=== PATIENT | female | born 1980 | race Caucasian/White ===

== ENCOUNTER 2018-10-16 11:10 | Inpatient (IN) ==
[2018-10-16] MEDS ORDERED: Ringers Solution, Lactated 1,000 ML IVC SCH (11:45)
[2018-10-16] MEDS ORDERED: *HR* FentaNYL (PF) 100 MCG/2 ML VIAL ONE ×2 (11:51→15:56)
[2018-10-16] MEDS ORDERED: *HR* Midazolam HCl 2 MG/2 ML VIAL ONE (11:51)
[2018-10-16] MEDS ORDERED: Lidocaine HCL 4 ML Topical Solution (Laryng-O-Jet Kit Sterile Pak) TP ONE (11:51)
[2018-10-16] MEDS ORDERED: *HR* Propofol 200 MG/20 ML VIAL IVP ONE (11:52)
[2018-10-16] MEDS ORDERED: Lidocaine -MPF 2% 2 ML VIAL ONE (11:53)
[2018-10-16] MEDS ORDERED: *HR* Succinylcholine 200 MG/10 ML VIAL IVP ONE (11:53)
[2018-10-16] MEDS ORDERED: Ondansetron 4 MG/2 ML VIAL ONE (11:54)
[2018-10-16] MEDS ORDERED: Dexamethasone 4 MG/ML VIAL ONE (11:54)
--- NOTE | 2018-10-16 12:12 | History & Physical Report ---
Date of Encounter: 10/16/18 Time of Encounter: 12:12 24 Hour HP Update - Instructions Instructions: If the History and Physical is less than 30 days old and was completed prior to A.M. admission and or procedure and has NOT been updated on calendar day of procedure please complete this update prior to performing procedure. - Update Patient reports changes in Medical Condition: No Changes in examination, assessment, or condition: No Changes in Medication: No Preop tests/diagnostics Reviewed: Yes Surgery Remains Indicated: Yes Consent for Planned Operative Procedure(s) Verified: Yes - Pre-Operative Checklist Preoperative Checklist Indicated: No Prophylactic Antibiotic Ordered: Yes Is VTE Prophylaxis Indicated?: Yes
[2018-10-16] MEDS ORDERED: *HR* Methadone 10 MG TABLET PO ONE (12:35)
[2018-10-16] MEDS ORDERED: Gabapentin 300 MG CAPSULE PO ONE (12:35)
[2018-10-16] MEDS ORDERED: Acetaminophen IV 1,000 MG/100 ML INFUS..BTL IVPB ONE (12:35)
--- NOTE | 2018-10-16 12:40 | Anesthesia Evaluation PreOp ---
Date of Encounter: 10/16/18 Time of Encounter: 12:38 - Past History Planned Operation: LEFT YOAN ROBOTIC Cardiac History: Denies any Significant Hx Pulmonary History: Former smoker INSECTICIDE SPRAYER History: Other (ANXIETY) Other Medical History: Denies Any Significant HX Anesthesia History: No Prior Anesthetic Complications, Past Anesthesia Test: Negative (10/09) Alcohol Use: none Drug use: none Medications and Allergies Acetaminophen [Tylenol] 1,000 mg PO QPM PRN 10/16/18 [History] Citalopram Hydrobromide [Citalopram HBr] 40 mg PO QPM 10/16/18 [History] Desog-E.estradiol/E.estradiol [Desogestr-Eth Estrad Eth Estra] 1 tab PO QPM 10/16/18 [History] Meloxicam 7.5 mg PO BID PRN 10/16/18 [History] Allergy/AdvReac Type Severity Reaction Status Date / Time oxycodone [From Percocet] Allergy Nausea Verified 10/16/18 11:47 - Meds/Allergy Pre-op Review Medications Reviewed: Yes Allergies Reviewed: Yes Anesthesia Results - Labs WNL Anesthesia Exam Vital Signs/O2 Sat, Most Current Temp Pulse Resp BP Pulse Ox 97.6 F 71 18 111/74 100 10/16/18 11:46 10/16/18 11:46 10/16/18 11:46 10/16/18 11:46 10/16/18 11:46 Weight: 59 KG - BMI 22 NPO (# of Hours): 8 - HEENT Mallampati: I Teeth: Normal - Cardiac Rhythm: Regular - Pulmonary Breath Sounds: bilateral Clear Anesthesia Assess/Plan ASA Score: 2 Anesthetic Plan: General Reason for No Neuroaxial/Regional Block: Other (HIGHER RISK FOR PDPH WITH AGE, NEEDS ANALGESIC TITRATION POST OP) Monitoring Plan: Standard Monitors Recovery Plan: PACU
[2018-10-16] MEDS ORDERED: *HR* HYDROmorphone 2 MG TABLET PO PRN (12:45)
[2018-10-16] MEDS ORDERED: Albuterol 2.5 MG/3 ML NEBULIZER IH ONE (12:45)
[2018-10-16] MEDS ORDERED: *HR* HYDROmorphone (PF) 1 MG/ML SYRINGE IVP PRN (12:45)
[2018-10-16] MEDS ORDERED: *HR* Midazolam HCl 2 MG/2 ML VIAL IVP PRN (12:45)
[2018-10-16] MEDS ORDERED: Ethanol\\Acetic Acid\\Na Ace\\Ben 1,000 ML IRRIG.SOLN IR ONE (14:37)
[2018-10-16] MEDS ORDERED: Ketorolac 30 MG/ML VIAL ONE (15:00)
[2018-10-16] MEDS ORDERED: ceFAZolin 2,000 MG in Water for inj. (sterile) 20 ML IVP ONE (15:21)
[2018-10-16] MEDS ORDERED: EPHEDrine 50 MG/ML VIAL ONE (15:36)
[2018-10-16] MEDS ORDERED: *HR* Rocuronium Bromide 50 MG/5 ML VIAL ONE (15:47)
[2018-10-16] MEDS ORDERED: Tranexamic Acid 1,000 MG/10 ML VIAL ONE (15:57)
--- NOTE | 2018-10-16 16:08 | Orthopedic Operative Note ---
Date of procedure: 10/16/18 Pre-op diagnosis: Left hip arthritis/left hip dysplasia Post-op diagnosis: same Procedure: Procedure: Left Total Hip Replacment robotic-assisted Estimated blood loss: 300 cc Hardware: Metal and polyethylene replacement. Carlos DM Cup: 54 cup Femoral size 5 anteverted anato stem Head: -4 head with Sondra Procedural Notes: Grade 4 arthritic changes femoral head acetabular socket, procedure performed with robotic assistance. Operative leg 2 mm shorter than nonoperative leg by preoperative CT scan Operative procedure: The patient was brought to the operating room and placed on the operating room table. After anesthesia was administered the patient was placed in the lateral decubitus position with the operative leg up. All pressure points were padded appropriately and the head was stabilized in the neutral position. The operative extremity was prepped and draped in the sterile surgical fashion patient received IV antibiotic prior to skin incision. 3 Steinmann pins were placed in the iliac crest 3 cm proximal to the anterior superior iliac spine this was for the robotic-assisted sensor. This was done through a small 2 cm incision. A standard posterior approach is made to the operative hip, the incision was made through the skin and subcutaneous tissue hemostasis was obtained with Bovie cautery. Using careful sharp dissection the fascia was identified and incised exposing the external rotators. The greater trochanter was marked, and length was measured at this time utilizing robotic assistance. The external rotators were released off the greater trochanter and tagged with #2 FiberWire suture. The capsule was T'd open and the hip was brought into internal rotation. Patient noted to have grade 4 arthritic changes femoral head. The femoral neck cut was made at the appropriate level roughly 17mm proximal to the lesser trochanter aced on preoperative templating. An anterior capsulotomy was performed for the anterior retractor. Soft tissues removed from the acetabulum. Patient noted to have grade 4 arthritic changes acetabulum. The acetabulum reference point was confirmed. The acetabulum was then mapped with robotic assistance. Based on the preoperative plan the acetabulum was reamed in sequential he up to a size 54 reamer. The 54 acetabulum was impacted with robotic assistance and 37 degrees of abduction and 35 degrees of anteversion. The hip was brought back in to internal rotation and prepared with the picker box operator followed by the canal finder followed by the reaming process to a size 12 broaching process in 20 degrees anteversion. It was broached up to the appropriate size 5 Trial reduction revealed leg lengths close to normal. The femoral implant was impacted in place in 20 degrees of anteversion. Trial reduction found the hip to be stable with -4head and Sondra. The trials were removed and the real implants were impacted in place. The hip was reduced, patient had robotic confirmed leg length of 4 mm longer than the contralateral side. The hip had excellent stability with forward flexion to 90 degrees adduction of 30 degrees and internal rotation of 60 degrees. The hip had no shuck. The hip sat with an antibacterial solution. It was irrigated out with 2 L of pulse irrigation. The Steinmann pins were removed. The deep tissue was irrigated and closed deep with #1 PDS suture superficially with 0 PDS suture and skin was closed with Dermabond and zip tie. The patient was placed in a sterile dressing and abduction pillow. The patient was transferred to the recovery room in stable condition. Anesthesia: GETA Surgeon: Nikolay García Was there an assistant store manager operations present: Yes Lining Stuffer: Kapil Real Estimated blood loss (cc): 300 Condition: stable Disposition: PACU
--- NOTE | 2018-10-16 16:50 | Anesthesia Evaluation Post Op ---
Date of Encounter: 10/16/18 Time of Encounter: 16:50 - Discharge PostOp Status: Transfer Patient to floor (Patient's vital signs have been reviewed. Patient is stable postoperatively and has adequately recovered from anesthesia. Patient is determined to have stable airway patency and respiratory function including respiratory rate and oxygen saturation. Patient has a stable heart rate, blood pressure and adequate hydration. Patients mental status is acceptable. Patients temperature is appropriate. Pain and nausea are adequately controlled)
[2018-10-16 17:02] LABS: Hematocrit 30.5 % (35.3-44.9); Hemoglobin 9.7 g/dL (11.5-15.4)
--- NOTE | 2018-10-16 17:17 | Physician Discharge Referral ---
Home Health/Hosp Referral Info Transfer to: Home Health Attending Provider: Dr. Nikolay García - Diagnosis (1) Status post total hip replacement, left Priority: Primary Status: Acute (2) Left hip pain Priority: Primary Status: Chronic (3) Congenital dysplasia of left hip Priority: Primary Status: Chronic - Respiratory Orders Smoking Cessation: Smoking cessation has been advised. For more information, call the [place] Tobacco Quit Line at 1-819-ZVDS-NOW. - Diet/Nutrition Diet/Nutrition Orders: Regular - Activity Activity Orders: Up ad dax, Ambulate, Chair, Walker - Services Needed Following services are medically necessary services: Nursing, Home Health Aide, Physical Therapy, Occupational Therapy, Med Social Work Home Care Orders: Total Hip replacement Precautions Apply cold therapy 3-6x/day for 20 minutes at a time. Encourage ambulation throughout the day and incentive spirometer 10x/hour. Elevate affected extremity as tolerated. Brace: Wear hip abduction pillow when laying/sleeping Opsite placed. Keep dressing intact until first follow up appointment. If greater than 50% saturated, notify office, remove dressing and place appropriate dressing back in place. Leave Zipline intact. Opsite dressing is water resistant, not water-proof. OK to shower, but do not get dressing wet. - Transfer Medications Prescriptions: Docusate [Colace] 100 mg PO BID 5 Days #10 capsule HYDROcodone/Acet 5/325 mg [[place] 5-325 mg] 1 tab PO Q6H PRN 5 Days #20 tab PRN Reason: Severe Pain Acetaminophen [Pain Relief] 500 mg PO Q6H 7 Days #28 tablet Home Medications: Acetaminophen [Pain Relief] 500 mg PO Q6H 7 Days #28 tablet 10/16/18 [Rx] Citalopram Hydrobromide [Citalopram HBr] 40 mg PO QPM 10/16/18 [History] Desog-E.estradiol/E.estradiol [Desogestr-Eth Estrad Eth Estra] 1 tab PO QPM 10/16/18 [History] Docusate [Colace] 100 mg PO BID 5 Days #10 capsule 10/16/18 [Rx] HYDROcodone/Acet 5/325 mg [[place] 5-325 mg] 1 tab PO Q6H PRN 5 Days #20 tab 10/16/18 [Rx] Meloxicam 7.5 mg PO BID PRN 10/16/18 [History] Allergies/Adverse Reactions: Allergy/AdvReac Type Severity Reaction Status Date / Time oxycodone [From Percocet] Allergy Nausea Verified 10/16/18 11:47 Certification: Further, I certify that my clinical findings support that this patient is homebound (i.e. absences from home require considerable and taxing effort and are for medical reasons or confucianism services or infrequently or short duration when for other reasons) because: Homebound Reason: Post-surgery restriction and or conditions limit ability to leave home Attestation: My signature below is to certify that this patient is under my care and that I, or nurse practitioner, or a physician drug safety assistant working with me, has a [id number] encounter with this patient.
--- NOTE | 2018-10-16 17:17 | Physician Discharge Referral ---
ExtendedCare Referral Info Transfer To: CANCEL DOCUMENT - Transfer Medications Prescriptions: Docusate [Colace] 100 mg PO BID 5 Days #10 capsule Ibuprofen [Motrin] 600 mg PO Q6HR PRN 7 Days #28 tab PRN Reason: Pain HYDROcodone/Acet 5/325 mg [[place] 5-325 mg] 1 tab PO Q6H PRN 5 Days #20 tab PRN Reason: Severe Pain Acetaminophen [Pain Relief] 500 mg PO Q6H 7 Days #28 tablet Home Medications: Acetaminophen [Pain Relief] 500 mg PO Q6H 7 Days #28 tablet 10/16/18 [Rx] Acetaminophen [Tylenol] 1,000 mg PO QPM PRN 10/16/18 [History] Citalopram Hydrobromide [Citalopram HBr] 40 mg PO QPM 10/16/18 [History] Desog-E.estradiol/E.estradiol [Desogestr-Eth Estrad Eth Estra] 1 tab PO QPM 10/16/18 [History] Docusate [Colace] 100 mg PO BID 5 Days #10 capsule 10/16/18 [Rx] HYDROcodone/Acet 5/325 mg [[place] 5-325 mg] 1 tab PO Q6H PRN 5 Days #20 tab 10/16/18 [Rx] Ibuprofen [Motrin] 600 mg PO Q6HR PRN 7 Days #28 tab 10/16/18 [Rx] Meloxicam 7.5 mg PO BID PRN 10/16/18 [History] Allergies/Adverse Reactions: Allergy/AdvReac Type Severity Reaction Status Date / Time oxycodone [From Percocet] Allergy Nausea Verified 10/16/18 11:47 - Respiratory Orders Smoking Cessation: Smoking cessation has been advised. For more information, call the [place] Tobacco Quit Line at 4-726-WGGQ-NOW. CERTIFICATION: I certify that the transfer of the above named patient to an Extended Care Facility is necessary for the continuing treatment of the diagnosis listed. The above information is true and accurate reflection of patient's current condition. Confidential - Redisclosure prohibited without a patient's written consent.
[2018-10-16] MEDS ORDERED: Sennosides 8.6 MG TABLET PO PRN (17:33)
[2018-10-16] MEDS ORDERED: *HR* Promethazine 25 MG/ML VIAL IVP PRN (17:33)
[2018-10-16] MEDS ORDERED: Naloxone 0.4 MG/ML INJ IVP PRN (17:33)
[2018-10-16] MEDS ORDERED: Ondansetron 4 MG/2 ML VIAL IVP PRN (17:33)
[2018-10-16] MEDS ORDERED: MOM Conc 10 ML UD.LIQ PO PRN (17:33)
[2018-10-16] MEDS ORDERED: Temazepam 15 MG CAPSULE PO PRN (17:33)
[2018-10-16] MEDS ORDERED: traMADol 50 MG TABLET PO PRN (17:33)
[2018-10-16] MEDS ORDERED: *HR* Enoxaparin 30 MG/0.3 ML SYRINGE SQ SCH (18:00)
--- NOTE | 2018-10-16 18:38 | Discharge Summary ---
<Kapil Real - Last Filed: 10/16/18 18:36> Orders not resulted at time of discharge: Pending orders 10/16/18 15:50 Surgical Pathology [PTH] Routine Date of Encounter: 10/16/18 - Discharge Diagnosis (1) Right hip pain Priority: Primary Status: Acute - Hospital Course Hospital course: Ms. Coffey is a 38 year old female - Time Spent with Patient Total time spent providing and/or coordinating discharge services: - Discharge Medications Prescriptions: New Docusate [Colace] 100 mg PO BID 5 Days #10 capsule HYDROcodone/Acet 5/325 mg [[place] 5-325 mg] 1 tab PO Q6H PRN 5 Days #20 tab PRN Reason: Severe Pain Acetaminophen [Pain Relief] 500 mg PO Q6H 7 Days #28 tablet Continued Citalopram Hydrobromide [Citalopram HBr] 40 mg PO QPM Desog-E.estradiol/E.estradiol [Desogestr-Eth Estrad Eth Estra] 1 tab PO QPM Meloxicam 7.5 mg PO BID PRN PRN Reason: Pain Discontinued Acetaminophen [Tylenol] 1,000 mg PO QPM PRN PRN Reason: Pain Home Medications: Acetaminophen [Pain Relief] 500 mg PO Q6H 7 Days #28 tablet 10/16/18 [Rx] Citalopram Hydrobromide [Citalopram HBr] 40 mg PO QPM 10/16/18 [History] Desog-E.estradiol/E.estradiol [Desogestr-Eth Estrad Eth Estra] 1 tab PO QPM 10/16/18 [History] Docusate [Colace] 100 mg PO BID 5 Days #10 capsule 10/16/18 [Rx] HYDROcodone/Acet 5/325 mg [[place] 5-325 mg] 1 tab PO Q6H PRN 5 Days #20 tab 10/16/18 [Rx] Meloxicam 7.5 mg PO BID PRN 10/16/18 [History] Allergies/Adverse Reactions: Allergy/AdvReac Type Severity Reaction Status Date / Time oxycodone [From Percocet] Allergy Nausea Verified 10/16/18 11:47 Date of admission: 10/16/18 18:28 Primary care physician: Marie White MD Consults: 10/16/18 17:33 Consult to Nurse Navigator [CONS] Routine Comment: ortho navigator Consult to Nutrition [CONS] Routine Comment: Consulting Provider: NUTRITION Reason for Dietary Consult: Other Other:: Proper nutrition to facilitate wound healing Consult to Occupational Therapy [CONS] Routine Comment: Evaluate, develop and implement POC Reason for Consult: total hip replacement Does patient have active BEDREST order?: No Is patient medically & hemodynamically stable?: Yes Consult to Physical Therapy [CONS] Routine Comment: Evaluate, develop and implement POC Reason for Consult: total hip replacement Does patient have active BEDREST order?: No Is patient medically & hemodynamically stable?: Yes Consult to Ruffler [CONS] Routine Reason for SW Consult: post op joint replacement RT Post Op Consult [CONS] Routine Labs on day of discharge: Labs from last 24 hours 10/16/18 16:35 Hgb 9.7 L Hct 30.5 L - Impressions ITS Impressions Hip X-Ray 10/16/18 01:00 IMPRESSION: No acute complication status post left hip arthroplasty. D/ / 10/16/2018 16:49:21 Paresh Tay MD / bcarter Interpreting Provider: Paresh Tay MD - Patient Status Disposition: Home Health Service Condition: Fair - Discharge Instructions Follow Up With: Marie White MD [Primary Care Provider] - Additional Instructions: Discharge Instructions: Total Hip Replacement Please call [facility] ([phone]), your Primary Care Physician, or report to the Emergency Room if you have any of the following symptoms: Nausea, vomiting, fever greater that 101.5, swelling, chest pain, shortness of breath, increased pain/redness/drainage/odor for your incision site, numbness/tingling, or any other concerning symptoms. ACTIVITY:Weight-bearing as tolerated for 8 weeks with hip dislocation precautions that physical therapy taught you. You may progress as tolerated under the guidance of your physical therapist. You do not need to sleep with a pillow between your legs. You can also seep on the operative side or on your stomach. Incentive Spirometer 10 times an hour. MEDICATIONS: Upon discharge resume your home medications. Take all the medications as prescribed. Take a stool softener if taking narcotic pain medications. Stool softeners are only effective if you drink enough fluids. Drink 6-8 glass of water or fluids a day, unless this is not allowed for another health problem. Despite using stool softeners, if you haven't had a bowel movement in 3 days, please switch to a gentle laxative. Gentle laxatives are sold over the counter. You should have a bowel movement within 24 hours, if not call the office. You will be discharged from the hospital with a prescription for pain medication. You are encouraged to decrease the use of narcotic pain medication as tolerated. Should you require a refill, please call the office. [facility] prescribes narcotic pain medication for only 4-6 weeks after surgery. If you require pain medication beyond this time period, you may be referred to your Primary Care Physician or to the Pain Clinic for further evaluation. Plan ahead for refills on pain medication as many narcotics either need to be picked up at the office or mailed. It is best to call 48-72 hours in advance of needing a prescription refill so you don't run out of medication. To help control the post-operative pain, you may take NSAIDs (Aleve,Advil, Motrin, ibuprofen, naprosyn) or Tylenol as prescribed on the bottle in addition to the pain medication. ANTICOAGULATION (blood thinners): Continue your Aspirin, Lovenox or Coumadin as prescribed to help prevent a blood clot in the leg or in the lungs. As long as your incision remains dry and you tolerate the NSAIDs (Aleve, Advil, Motrin, Ibuprofen, Naprosyn), it is OK to use the NSAIDS while you are taking your anticoagulation medication. Should your incision start to drain, stop the NSAID and contact our office. Common symptoms of blood clot in the legs include: localized pain, swelling, calf tenderness, redness or discoloration of the skin. Blood clot in the lung symptoms include: shortness of breath, rapid pulse, sweating, and chest pain that worsens with deep breathing, coughing up blood, lightheadedness, feelings of anxiety. If you experience any of these symptoms notify your physician immediately, go to the emergency room, or if having trouble breathing, call 911. WOUND CARE: Leave the dressing on for 7 to 10days. You may change the dressing if it is saturated greater than 50%. Do not get the dressing wet at anytime. Wash your hands with antibacterial soap, rinse and dry prior to any wound care. If you have javier the visiting nurse or rehab facility can remove the stapes 10-14 days after surgery and place steri-strips across the wound. Leave the steri-strips in place until they fall off on their own. You may let water from the shower run on top of the steri-strips. If you do not have a visiting nurse or rehab facility, you will need to return to the office at 10-14 days for the javier to be removed. If you have itching or redness around the dressing call the office. FOLLOW-UP: Please follow up with your surgeon in the orthopedic clinic in 6 weeks from the day of surgery. If you have javier that need to be removed, you will need to come back to the office in 10-14 days from the day of surgery. <Dunia Fernandez E - Last Filed: 10/24/18 07:45> Date of Encounter: 10/16/18 Time of Encounter: 12:30 - Discharge Diagnosis (1) Status post total hip replacement, left Priority: Primary Status: Acute (2) Left hip pain Priority: Primary Status: Chronic (3) Congenital dysplasia of left hip Priority: Primary Status: Chronic - Hospital Course Hospital course: Ms. Coffey is a 38 year old female The patient's postoperative course was uneventful. Progressed from intravenous analgesic needs to oral analgesic needs only. Remained neurovascularly intact and mobilized satisfactorily. All radiographic studies were satisfactory. Patient course and disposition was followed by Dr. García. Patient seen by Dr. García as discharging physician on this day. Patient is discharged with plan for rehabilitation and outpatient orthopedic follow up has been arranged. - Time Spent with Patient Total time spent providing and/or coordinating discharge services: Date of admission: 10/16/18 18:28 Primary care physician: Marie White MD Consults: 10/16/18 17:33 Consult to Nurse Navigator [CONS] Routine Comment: ortho navigator Consult to Nutrition [CONS] Routine Comment: Consulting Provider: NUTRITION Reason for Dietary Consult: Other Other:: Proper nutrition to facilitate wound healing Consult to Occupational Therapy [CONS] Routine Comment: Evaluate, develop and implement POC Reason for Consult: total hip replacement Does patient have active BEDREST order?: No Is patient medically & hemodynamically stable?: Yes Consult to Physical Therapy [CONS] Routine Comment: Evaluate, develop and implement POC Reason for Consult: total hip replacement Does patient have active BEDREST order?: No Is patient medically & hemodynamically stable?: Yes Consult to Ruffler [CONS] Routine Reason for SW Consult: post op joint replacement RT Post Op Consult [CONS] Routine Discharging clinician: Nikolay García Anticipated date of discharge: 10/17/18 - VTE Documentation of Mechanical Device: Venous foot pump, device - Impressions ITS Impressions Hip X-Ray 10/16/18 01:00 IMPRESSION: No acute complication status post left hip arthroplasty. D/ / 10/16/2018 16:49:21 Paresh Tay MD / bcarter Interpreting Provider: Paresh Tay MD - Patient Status Functional capacity at discharge: uses cane/walker Overall status at discharge: patient is progressing back to baseline - Diet and Activity Activity: as per physical therapy Diet: advance to your usual diet
[2018-10-16] MEDS: Ascorbic Acid 500 MG TABLET PO SCH (20:02)
[2018-10-16] MEDS: Gabapentin 300 MG CAPSULE PO SCH ×2 (20:02→21:10)
[2018-10-16] MEDS: *HR* Enoxaparin 30 MG/0.3 ML SYRINGE SQ SCH (20:08)
[2018-10-16] MEDS: Ringers Solution, Lactated 1,000 ML IVC SCH (21:04)
[2018-10-17] MEDS: HYDROcodone BIT/Homatropine 5 MG TABLET PO PRN ×2 (01:03→20:50)
[2018-10-17] MEDS: *HR* Enoxaparin 30 MG/0.3 ML SYRINGE SQ SCH ×2 (05:54→17:15)
[2018-10-17] MEDS: *HR* HYDROcodone/Acet 10/325 mg TABLET PO PRN ×2 (05:54→13:18)
[2018-10-17] MEDS: Ringers Solution, Lactated 1,000 ML IVC SCH ×2 (05:55→22:33)
[2018-10-17 06:55] LABS: Basophils % 0.1 %; Hematocrit 30.2 % (35.3-44.9); Hemoglobin 9.4 g/dL (11.5-15.4); Immature Granulocytes % 0.5 % (0-4); Lymphocytes # 0.7 K/mcL (0.6-4.6); Lymphocytes % 6.4 %; Mean Corpuscular HGB Conc 31.1 g/dL (31.6-35.5); Mean Corpuscular Hemoglobin 27.2 pg (28.0-33.3); Mean Corpuscular Volume 87.5 fL (83.0-100.0); Mean Platelet Volume 12.7 fL (9.4-12.4); Monocytes # 1.1 K/mcL (0.0-1.3); Monocytes % 9.9 %; Platelet Count 186 K/mcL (140-400); Red Blood Count 3.45 M/mcL (3.82-4.97); Red Cell Distribution Width 14.5 % (11.5-14.5); Segmented Neutrophils % 83.1 %; White Blood Count 10.8 K/mcL (4.3-11.1)
[2018-10-17 07:15] LABS: BUN/Creatinine Ratio 19 (6-26); Blood Urea Nitrogen 12 mg/dL (6-20); Calcium 8.2 mg/dL (8.6-10.3); Carbon Dioxide 22 mEq/L (23-29); Chloride 103 mEq/L (98-107); Glucose 167 mg/dL (70-105); Osmolality,Calculated 286 (280-300); Potassium 3.7 mEq/L (3.5-5.1); Sodium 136 mEq/L (136-145); eGFR For African Americans > 60 (> 60); eGFR For Non-African Americans > 60 (> 60)
[2018-10-17] MEDS: Gabapentin 300 MG CAPSULE PO SCH ×3 (08:59→20:50)
[2018-10-17] MEDS: Multivit/Ca/Min/Fe/FA 1 TAB TABLET PO SCH (08:59)
[2018-10-17] MEDS: Ascorbic Acid 500 MG TABLET PO SCH ×2 (08:59→17:15)
[2018-10-17] MEDS ORDERED: 0.9 % Sodium Chloride 500 ML IVC ONE (16:22)
[2018-10-17] MEDS ORDERED: Simethicone 80 MG TAB.CHEW PO PRN (20:00)
[2018-10-18 01:33] LABS: Basophils % 0.2 %
[2018-10-18 01:35] LABS: Eosinophils # 0.1 K/mcL (0.0-0.6); Eosinophils % 1.3 %; Hemoglobin 7.7 g/dL (11.5-15.4); Immature Granulocytes % 0.4 % (0-4); Immature Platelets 8.6 % (1.1-6.1); Lymphocytes # 0.8 K/mcL (0.6-4.6); Mean Corpuscular HGB Conc 32.1 g/dL (31.6-35.5); Mean Corpuscular Hemoglobin 28.1 pg (28.0-33.3); Mean Corpuscular Volume 87.6 fL (83.0-100.0); Mean Platelet Volume 12.1 fL (9.4-12.4); Monocytes # 0.6 K/mcL (0.0-1.3); Monocytes % 11.5 %; Neutrophils # 3.8 K/mcL (1.6-8.9); Red Blood Count 2.74 M/mcL (3.82-4.97); Red Cell Distribution Width 14.7 % (11.5-14.5); Segmented Neutrophils % 71.6 %; White Blood Count 5.3 K/mcL (4.3-11.1)
[2018-10-18 01:49] LABS: BUN/Creatinine Ratio 23 (6-26); Blood Urea Nitrogen 10 mg/dL (6-20); Calcium 7.9 mg/dL (8.6-10.3); Carbon Dioxide 26 mEq/L (23-29); Chloride 108 mEq/L (98-107); Glucose 136 mg/dL (70-105); Osmolality,Calculated 291 (280-300); Potassium 3.5 mEq/L (3.5-5.1); Sodium 140 mEq/L (136-145); eGFR For African Americans > 60 (> 60); eGFR For Non-African Americans > 60 (> 60)
[2018-10-18 02:03] LABS: Platelet Count 93 K/mcL (140-400)
[2018-10-18] MEDS: HYDROcodone BIT/Homatropine 5 MG TABLET PO PRN ×3 (03:33→13:16)
[2018-10-18] MEDS: *HR* Enoxaparin 30 MG/0.3 ML SYRINGE SQ SCH ×2 (06:02→18:12)
[2018-10-18 08:00] VITALS: BP 107/67
[2018-10-18] MEDS: Multivit/Ca/Min/Fe/FA 1 TAB TABLET PO SCH (08:13)
[2018-10-18] MEDS: Gabapentin 300 MG CAPSULE PO SCH ×2 (08:13→13:17)
[2018-10-18] MEDS: Ascorbic Acid 500 MG TABLET PO SCH ×2 (08:13→18:11)
--- NOTE | 2018-10-18 17:34 | Orthopedics Progress Note ---
Date of Encounter: 10/17/18 Time of Encounter: 10:05 Subjective Principal diagnosis: Status post total hip arthroplasty Interval history: The patient is without complaints. Afebrile vital signs are stable. Incision is clean dry and intact. Neurovascularly intact with regard to bilateral lower extremities. Assessment :stable. Plan mobilize ,continue analgesics, discharge planning. On iron for low hemoglobin. Objective Vital signs: Vital Signs Temp Pulse Resp BP Pulse Ox 10/18/18 07:59 98.2 F 70 16 107/67 97 10/18/18 03:46 98.1 F 90 20 107/68 97 10/17/18 22:34 98.3 F 84 20 102/62 96 10/17/18 18:27 99.1 F 86 20 107/68 98 Intake and Output 10/18/18 10/18/18 10/18/18 07:59 15:59 23:59 Intake Total 50 / 570 520 / 570 Output Total 400 / 400 Balance 50 / 170 120 / 170 Intake: Oral 50 / 570 520 / 570 Output: Urine 400 / 400 Other: Meal Breakfast Percent of Meal Consumed 50% # Voids 1 1 Weight 58.9 kg Patient Weight 10/18/18 23:59 Weight 58.9 kg - Labs CBC & BMP: 10/18/18 01:01 10/18/18 01:01 Labs: Abnormal lab results RBC 2.74 M/mcL (3.82-4.97) L 10/18/18 01:01 Hgb 7.7 g/dL (11.5-15.4) L D 10/18/18 01:01 Hct 24.0 % (35.3-44.9) L 10/18/18 01:01 MCH 27.2 pg (28.0-33.3) L 10/17/18 05:39 MCHC 31.1 g/dL (31.6-35.5) L 10/17/18 05:39 RDW 14.7 % (11.5-14.5) H 10/18/18 01:01 Plt Count 93 K/mcL (140-400) L 10/18/18 01:01 MPV 12.7 fL (9.4-12.4) H 10/17/18 05:39 Neutrophils # 9.0 K/mcL (1.6-8.9) H 10/17/18 05:39 Immature Plt Fraction 8.6 % (1.1-6.1) H 10/18/18 01:01 Chloride 108 mEq/L (98-107) H 10/18/18 01:01 Carbon Dioxide 22 mEq/L (23-29) L 10/17/18 05:39 Creatinine 0.44 mg/dL (0.60-1.20) L 10/18/18 01:01 Glucose 136 mg/dL (70-105) H 10/18/18 01:01 POC Glucose 130 mg/dL (70-99) H 10/17/18 17:03 Calcium 7.9 mg/dL (8.6-10.3) L 10/18/18 01:01 - VTE Documentation of Mechanical Device: Venous foot pump, device Consult Discharge Plan - Plan Referrals: Marie White MD [Primary Care Provider] - Prescriptions: Docusate [Colace] 100 mg PO BID 5 Days #10 capsule Ibuprofen [Motrin] 600 mg PO Q6HR PRN 7 Days #28 tab PRN Reason: Pain HYDROcodone/Acet 5/325 mg [[place] 5-325 mg] 1 tab PO Q6H PRN 5 Days #20 tab PRN Reason: Severe Pain Acetaminophen [Pain Relief] 500 mg PO Q6H 7 Days #28 tablet
--- NOTE | 2018-10-18 17:36 | Orthopedics Progress Note ---
Date of Encounter: 10/18/18 Time of Encounter: 17:35 Subjective Principal diagnosis: Status post total hip arthroplasty Interval history: The patient is without complaints. Afebrile vital signs are stable. Incision is clean dry and intact. Neurovascularly intact with regard to bilateral lower extremities. Assessment :stable. Plan mobilize ,continue analgesics, discharge planning. On iron for low hemoglobin. Awaiting set up with home health. Objective Vital signs: Vital Signs Temp Pulse Resp BP Pulse Ox 10/18/18 07:59 98.2 F 70 16 107/67 97 10/18/18 03:46 98.1 F 90 20 107/68 97 10/17/18 22:34 98.3 F 84 20 102/62 96 10/17/18 18:27 99.1 F 86 20 107/68 98 Intake and Output 10/18/18 10/18/18 10/18/18 07:59 15:59 23:59 Intake Total 50 / 570 520 / 570 Output Total 400 / 400 Balance 50 / 170 120 / 170 Intake: Oral 50 / 570 520 / 570 Output: Urine 400 / 400 Other: Meal Breakfast Percent of Meal Consumed 50% # Voids 1 1 Weight 58.9 kg Patient Weight 10/18/18 23:59 Weight 58.9 kg - Labs CBC & BMP: 10/18/18 01:01 10/18/18 01:01 Labs: Abnormal lab results RBC 2.74 M/mcL (3.82-4.97) L 10/18/18 01:01 Hgb 7.7 g/dL (11.5-15.4) L D 10/18/18 01:01 Hct 24.0 % (35.3-44.9) L 10/18/18 01:01 MCH 27.2 pg (28.0-33.3) L 10/17/18 05:39 MCHC 31.1 g/dL (31.6-35.5) L 10/17/18 05:39 RDW 14.7 % (11.5-14.5) H 10/18/18 01:01 Plt Count 93 K/mcL (140-400) L 10/18/18 01:01 MPV 12.7 fL (9.4-12.4) H 10/17/18 05:39 Neutrophils # 9.0 K/mcL (1.6-8.9) H 10/17/18 05:39 Immature Plt Fraction 8.6 % (1.1-6.1) H 10/18/18 01:01 Chloride 108 mEq/L (98-107) H 10/18/18 01:01 Carbon Dioxide 22 mEq/L (23-29) L 10/17/18 05:39 Creatinine 0.44 mg/dL (0.60-1.20) L 10/18/18 01:01 Glucose 136 mg/dL (70-105) H 10/18/18 01:01 POC Glucose 130 mg/dL (70-99) H 10/17/18 17:03 Calcium 7.9 mg/dL (8.6-10.3) L 10/18/18 01:01 - VTE Documentation of Mechanical Device: Venous foot pump, device Consult Discharge Plan - Plan Referrals: Marie White MD [Primary Care Provider] - Prescriptions: Docusate [Colace] 100 mg PO BID 5 Days #10 capsule Ibuprofen [Motrin] 600 mg PO Q6HR PRN 7 Days #28 tab PRN Reason: Pain HYDROcodone/Acet 5/325 mg [[place] 5-325 mg] 1 tab PO Q6H PRN 5 Days #20 tab PRN Reason: Severe Pain Acetaminophen [Pain Relief] 500 mg PO Q6H 7 Days #28 tablet
[2018-10-18] MEDS: *HR* HYDROcodone/Acet 10/325 mg TABLET PO PRN (18:11)
== END 2018-10-18 19:52 | disposition home health service (06) | DRG 301 ==
LOC: SAMDAY 11:10 → 3NENU 18:28
PROVIDERS: ADMIT Orthopaedic Surgery; ATTEND Orthopaedic Surgery